=== PATIENT | female | born 1955 | race Caucasian/White ===

== ENCOUNTER 2017-06-17 17:24 | Emergency (ER) | payer MEDICAID ==
[~2017-06-17] VITALS: Ht 154.9 cm; Wt 83.9 kg
[2017-06-17 17:32] VITALS: BP_SYST 163
[2017-06-17 18:20] VITALS: BP_SYST 142
== END 2017-06-17 18:20 | disposition home or self-care (01) ==
LOC: SED 17:24
DX: L73.9 Follicular disorder, unspecified (principal)
CPT/HCPCS: 99283